=== PATIENT | female | born 1995 | race Caucasian/White ===

== ENCOUNTER 2023-12-21 12:38 | Emergency (ER) | payer BC ==
[~2023-12-21] VITALS: Ht 149.9 cm; Wt 54.4 kg
[2023-12-21 12:51] VITALS: BP 133/79; PULSE 68; RESP 16; TEMP 98.2; O2SAT 99
== END 2023-12-21 16:21 | disposition home or self-care (01) ==
LOC: ER 12:38
DX: T17.208A Unspecified foreign body in pharynx causing other injury, initial encounter (principal); X58.XXXA Exposure to other specified factors, initial encounter
CPT/HCPCS: 99283